=== PATIENT | female | born 1990 | race Caucasian/White ===

== ENCOUNTER 2020-09-08 23:19 | Emergency (ER) | payer OTHER, SELFPAY ==
--- NOTE | ~2020-09-08 | US_ITS ---
EXAMINATION: US VENOUS ULTRASOUND WITH DOPPLER LOWER EXTREMITY, LEFT CLINICAL INFORMATION: Tenderness, pain at proximal lower leg COMPARISON: None TECHNIQUE: Ultrasound of the deep veins is performed from the hip to the calf with compression sonography and color and pulse Doppler assessment. Spectral analysis with color-flow imaging is performed. FINDINGS: There is normal venous compression and respiratory variation and augmented flow. The visualized common femoral vein, superficial femoral vein, profunda femoral vein, popliteal vein, and the trifurcation region shows no evidence of deep venous thrombosis. There is a popliteal fossa cyst measuring 1.5 x 0.6 x 1.1 cm. If the patient's symptoms persist, followup ultrasound in 5 days 7 days might be of value to exclude proximal propagation from a non-visualized calf vein. US/US venous duplex LE IMPRESSION: 1. No DVT demonstrated in the left lower extremity. 2. Popliteal fossa cyst measuring up to 1.5 cm.
[2020-09-08 23:48] VITALS: BP 98/67; PULSE 75; RESP 16; TEMP 36.8; O2SAT 98; BMI 34.8
--- NOTE | 2020-09-09 01:12 | ED.GENADULT ---
HPI - General Adult General Chief complaint: Extremity Injury, Lower Stated complaint: KNEE PAIN Time Seen by Provider: 09/09/20 01:12 Source: patient Mode of arrival: ambulatory History of Present Illness HPI narrative: This is a 30-year-old female without significant past medical history who is currently and presents with 1 week of left lower extremity discomfort located at the anteromedial aspect of the proximal lower leg with sensitivity when touched and patient states worsens towards the end of her shift. 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 and states that she works the evening shift and by the end of the evening it is far worse. She denies any associated recent travel, shortness of breath, palpitations, fevers. Related Data Allergies Allergy/AdvReac Type Severity Reaction Status Date / Time peto-bismol Allergy Unknown hives Uncoded 05/27/19 00:00 Review of Systems Review of Systems: Pertinent positives and negatives as stated in HPI 10 point review of systems is otherwise negative. PMFSH Past Medical History Source: nursing notes reviewed Medical History No active medical problems Social History Social History Advance Directives: No Advance Directives Information Provided: No Physical Exam Vital Signs: Vital Signs: Last Vital Signs Temp 98.2 F 09/08/20 23:48 Pulse 75 09/08/20 23:48 Resp 16 09/08/20 23:48 BP 98/67 09/08/20 23:48 Pulse Ox 98 09/08/20 23:48 Body Mass Index 34.8 VITAL SIGNS: Reviewed. GENERAL: Well developed, well nourished, in no acute distress. HEAD: Normocephalic/atraumatic, EYES: PERRLA, EOMI EARS: Ext canals without abnormality NOSE: Nares patent bilateral OROPHARYNX: no oral lesions noted, posterior pharynx clear NECK: Supple, no adenopathy LUNGS: Normal breath sounds. No adventitious sounds or accessory muscle use. SpO2<98> CARDIOVASCULAR: Regular rate and rhythm without noted murmurs ABDOMEN: Soft, non-tender, non-distended with bowel sounds. No rigidity. No guarding. No palpable masses or hernias noted LEFT LOWER EXTREMITY: Tenderness on palpation over the anteromedial aspect of proximal left lower leg, no calf pain/swelling/erythema/induration, capillary refill less than 3 seconds NEUROLOGIC: Alert and oriented x 4. Strength and sensation to light touch were grossly intact x 4. Course Course Course Narrative: This is a 30-year-old female with history and clinical presentation suggestive williamson cyst, thrombophlebitis but will rule out DVT. On review of all investigations there is no suggestion of DVT, but there is a Williamson cyst that was identified. All results and findings were discussed with the patient at bedside and she was strongly encouraged to use compression stockings for additional support Discharge Plan Discharge Clinical Impression: Cyst, Williamson's knee Qualifiers: Laterality: left Qualified Code(s): M71.22 - Synovial cyst of popliteal space [Williamson], left knee Patient Disposition: Home, Self-Care Instructions: Bakers Cyst (ED) Additional Instructions: 1. Tylenol 1000 mg, orally, every 6 hours as needed for pain control. Do not exceed 4000 mg within 24 hours. 2. Recommend compression stockings for additional symptom relief. 3. Follow-up with primary care provider as well as human development professor for additional recommendations. Do not hesitate to return to the emergency department should you experience any acute worsening of your symptoms Referrals: Physician,Unknown [Primary Care Provider] - 2 days
--- NOTE | 2020-09-09 01:37 | PC.NURSE ---
PT WILL BE GOING TO [facility] WITH TAKE OVER FOR FOR PT CARE REPORT GIVEN CALL [facility] IN [place].
== END 2020-09-09 03:08 | disposition home or self-care (01) ==
PROVIDERS: Emergency Provider Student in an Organized Health Care Education/Training Program
DX: O26.899 Other specified pregnancy related conditions, unspecified trimester (principal); M71.22 Synovial cyst of popliteal space [Baker], left knee; M25.562 Pain in left knee; Z3A.00 Weeks of gestation of pregnancy not specified
CPT/HCPCS: 93971; 99284

== ENCOUNTER → 2025-03-26 10:02 | Outpatient (BNVA) | payer OTHER, SELFPAY | PROVIDERS: Visit Provider Physician Assistant | DX: S80.01XA Contusion of right knee, initial encounter (principal); V89.0XXA Person injured in unspecified motor-vehicle accident, nontraffic, initial encounter | CPT/HCPCS: 73564; 99204 ==

== ENCOUNTER → 2025-03-30 08:31 | Outpatient (BNVA) | payer OTHER, SELFPAY | PROVIDERS: Visit Provider Emergency Medicine | DX: S80.01XA Contusion of right knee, initial encounter (principal); V89.0XXA Person injured in unspecified motor-vehicle accident, nontraffic, initial encounter; Z02.79 Encounter for issue of other medical certificate | CPT/HCPCS: 99213 ==